=== PATIENT | male | born 1955 | race Caucasian/White ===

== ENCOUNTER 2022-05-20 15:41 | Inpatient (IN) | payer MEDICARE ==
[2022-05-20 16:35] LABS: #Basophils 0.1 10x3/uL (0.0-0.2); #Eosinphils 0.2 10x3/uL (0.0-0.5); #Monocytes 0.9 10x3/uL (0.0-1.1); #Neutrophils 4.9 10x3/uL (1.5-8.4); %Basophils 0.9 % (0.0-2.0); %Eosinophils 2.8 % (0.0-6.0); %Lymphocytes 25.2 % (18.0-47.0); %Monocytes 10.7 % (0.0-10.0); %Neutrophils 59.9 % (40.0-75.0); Hemoglobin 16.4 g/dL (13.5-17.5); Mean Corpuscular HGB CONC 32.8 g/dL (32.0-36.0); Mean Corpuscular Hemoglobin 28.5 pg (27.0-33.0); Mean Platelet Volume 10.1 fl (7.4-10.4); Platelet Count 240 10x3/uL (150-450); RBC Distribution Width 14.6 % (11.5-14.5); Red Blood Cell (RBC) Count 5.75 10x6/uL (4.32-5.72); White Blood Cell (WBC) Count 8.2 10x3/uL (3.5-10.5)
[2022-05-20 17:07] LABS: ALT (SGPT) 21 U/L (8-55); AST (SGOT) 30 U/L (5-34); Alkaline Phosphatase 60 U/L (40-110); Anion Gap 16 mmol/L (10-20); BUN (Urea Nitrogen) 16 mg/dL (8.4-25.7); Bilirubin, Total 0.4 mg/dL (0.2-1.2); Calc. Creatinine Clearance 0 mL/min (70-130); Carbon Dioxide 21 mmol/L (23-31); Chloride 106 mmol/L (98-107); Estimated GFR 98; Globulin 3.8 g/dL (2.4-3.5); Glucose 96 mg/dL (80-115); Potassium 4.5 mmol/L (3.5-5.1); Protein, Total 7.8 g/dL (5.8-8.1); Sodium 138 mmol/L (136-145)
[2022-05-20] MEDS ORDERED: Furosemide 40 MG/4 ML VIAL ONE (17:28)
[2022-05-20 17:51] LABS: Bilirubin Neg (Negative); Blood, Urine 10 (Negative); Clarity Clear (Clear); Glucose, Urine (Dipstick) Normal (Negative); Ketone, Urine Negative (Negative); Leukocyte Negative (Negative); Nitrite Negative (Negative); Protein, Urine (Dipstick) Negative (Neg-Trace); Specific Gravity, Urine 1.015 (1.005-1.030)
[2022-05-20 17:59] LABS: Bacteria/HPF Rare-Few HPF (None Seen); RBC/HPF 0-3 HPF (0-3); Squamous Epithelial 0-3 HPF (0-3)
[2022-05-20] MEDS ORDERED: Senokot S 8.6-50 MG TAB PO PRN (18:24)
[2022-05-20] MEDS ORDERED: Ondansetron PF 4 MG/2 ML Vial IVP PRN (18:24)
[2022-05-20] MEDS ORDERED: Guaifenesin DM 100-10/5 ML UDCUP PO PRN (18:24)
[2022-05-20] MEDS ORDERED: Dextrose 5% in Water 1,000 ML IV PRN (18:47)
[2022-05-20] MEDS ORDERED: Dextrose 50% Abboject 50 ML SYRINGE SLOW IVP PRN (18:47)
[2022-05-20] MEDS ORDERED: HumaLOG 300 UNITS/3 ML VIAL SC PRN (18:47)
[2022-05-20 19:36] LABS: Troponin I Less than 0.010 ng/mL (< 0.028)
[2022-05-20] MEDS: HYDROcodone/Acetaminophen 5/325 mg Tablet PO PRN (22:10)
[2022-05-20] MEDS ORDERED: Tamsulosin HCl 0.4 MG CAP PO SCH (22:15)
[2022-05-20] MEDS ORDERED: Diltiazem 125 MG in Sodium Chloride 0.9% 100 ML IVPB SCH (23:59)
[2022-05-21] MEDS: HYDROcodone/Acetaminophen 5/325 mg Tablet PO PRN ×2 (03:55→20:18)
[2022-05-21 04:51] LABS: #Eosinphils 0.3 10x3/uL (0.0-0.5); #Monocytes 0.7 10x3/uL (0.0-1.1); #Neutrophils 3.4 10x3/uL (1.5-8.4); %Basophils 0.6 % (0.0-2.0); %Lymphocytes 36.6 % (18.0-47.0); %Monocytes 9.7 % (0.0-10.0); %Neutrophils 48.5 % (40.0-75.0); Hemoglobin 15.8 g/dL (13.5-17.5); Mean Corpuscular HGB CONC 32.7 g/dL (32.0-36.0); Mean Corpuscular Hemoglobin 28.1 pg (27.0-33.0); Mean Corpuscular Volume 85.9 fl (81.2-95.1); Mean Platelet Volume 9.8 fl (7.4-10.4); Platelet Count 215 10x3/uL (150-450); RBC Distribution Width 14.6 % (11.5-14.5); Red Blood Cell (RBC) Count 5.62 10x6/uL (4.32-5.72); White Blood Cell (WBC) Count 6.9 10x3/uL (3.5-10.5)
[2022-05-21 05:07] LABS: ALT (SGPT) 17 U/L (8-55); AST (SGOT) 19 U/L (5-34); Albumin 3.8 g/dL (3.4-4.8); Alkaline Phosphatase 53 U/L (40-110); Anion Gap 14 mmol/L (10-20); BUN (Urea Nitrogen) 15 mg/dL (8.4-25.7); Bilirubin, Total 0.5 mg/dL (0.2-1.2); Calc. Creatinine Clearance 203 mL/min (70-130); Calcium 8.9 mg/dL (7.8-10.44); Carbon Dioxide 25 mmol/L (23-31); Chloride 102 mmol/L (98-107); Estimated GFR 98; Globulin 3.4 g/dL (2.4-3.5); Glucose 98 mg/dL (80-115); Magnesium 1.9 mg/dL (1.6-2.6); Potassium 3.5 mmol/L (3.5-5.1); Protein, Total 7.2 g/dL (5.8-8.1); Sodium 137 mmol/L (136-145)
[2022-05-21] MEDS: Furosemide 100 MG/10 ML VIAL SLOW IVP SCH ×2 (06:39→15:28)
[2022-05-21] MEDS ORDERED: Carvedilol 6.25 MG TAB PO SCH (08:00)
[2022-05-21] MEDS: Potassium Chloride 20 MEQ TAB PO SCH ×2 (08:44→16:46)
[2022-05-21] MEDS ORDERED: Sodium Chloride 0.9% 500 ML IV SCH (09:30)
[2022-05-21 12:58] LABS: Hemoglobin A1c 5.5 % (4.0-6.0)
[2022-05-21] MEDS ORDERED: Furosemide 40 MG/4 ML VIAL SLOW IVP SCH (15:30)
[2022-05-21] MEDS: Acetaminophen 325 MG TAB PO PRN (16:46)
[2022-05-21] MEDS: Carvedilol 3.125 MG TAB PO SCH (16:46)
[2022-05-21] MEDS: Apixaban 5 MG TAB PO SCH (20:17)
[2022-05-21] MEDS: Tamsulosin HCl 0.4 MG CAP PO SCH (20:18)
[2022-05-21] MEDS: Calamine/Zinc Oxide 177 ML LOTION TP SCH (21:11)
[2022-05-22] MEDS: HYDROcodone/Acetaminophen 5/325 mg Tablet PO PRN ×3 (02:48→21:56)
[2022-05-22 05:52] LABS: #Eosinphils 0.4 10x3/uL (0.0-0.5); #Monocytes 0.8 10x3/uL (0.0-1.1); #Neutrophils 4.3 10x3/uL (1.5-8.4); %Basophils 0.5 % (0.0-2.0); %Eosinophils 4.8 % (0.0-6.0); %Lymphocytes 30.3 % (18.0-47.0); %Monocytes 9.8 % (0.0-10.0); %Neutrophils 54.1 % (40.0-75.0); Hemoglobin 14.7 g/dL (13.5-17.5); Mean Corpuscular HGB CONC 32.2 g/dL (32.0-36.0); Mean Corpuscular Hemoglobin 28.3 pg (27.0-33.0); Mean Corpuscular Volume 87.7 fl (81.2-95.1); Mean Platelet Volume 9.5 fl (7.4-10.4); Platelet Count 206 10x3/uL (150-450); RBC Distribution Width 14.6 % (11.5-14.5); White Blood Cell (WBC) Count 7.9 10x3/uL (3.5-10.5)
[2022-05-22] MEDS: Furosemide 40 MG/4 ML VIAL SLOW IVP SCH ×2 (05:52→14:23)
[2022-05-22 06:18] LABS: Anion Gap 15 mmol/L (10-20); BUN (Urea Nitrogen) 19 mg/dL (8.4-25.7); Calc. Creatinine Clearance 200 mL/min (70-130); Calcium 8.9 mg/dL (7.8-10.44); Carbon Dioxide 25 mmol/L (23-31); Chloride 101 mmol/L (98-107); Estimated GFR 98; Glucose 100 mg/dL (80-115); Potassium 3.7 mmol/L (3.5-5.1); Sodium 137 mmol/L (136-145)
[2022-05-22] MEDS ORDERED: Digoxin 0.125 MG TAB PO SCH (09:00)
[2022-05-22 09:07] LABS: Free T4 (Free Thyroxine) 0.85 ng/dL (0.70-1.48)
[2022-05-22] MEDS: Apixaban 5 MG TAB PO SCH ×2 (09:22→21:53)
[2022-05-22] MEDS: Potassium Chloride 20 MEQ TAB PO SCH ×2 (09:22→17:16)
[2022-05-22] MEDS: Carvedilol 3.125 MG TAB PO SCH ×2 (09:23→17:16)
[2022-05-22] MEDS: Dronedarone HCl 400 MG TAB PO SCH ×2 (09:23→17:16)
[2022-05-22] MEDS: Aspirin 81 mg Enteric Coated Tablet PO SCH (09:25)
[2022-05-22] MEDS: Calamine/Zinc Oxide 177 ML LOTION TP SCH ×2 (09:26→21:53)
[2022-05-22] MEDS: Acetaminophen 325 MG TAB PO PRN (13:12)
[2022-05-22] MEDS: Tamsulosin HCl 0.4 MG CAP PO SCH (21:52)
[2022-05-23 05:23] LABS: #Eosinphils 0.3 10x3/uL (0.0-0.5); #Monocytes 0.8 10x3/uL (0.0-1.1); #Neutrophils 3.6 10x3/uL (1.5-8.4); %Basophils 0.6 % (0.0-2.0); %Eosinophils 3.7 % (0.0-6.0); %Lymphocytes 31.2 % (18.0-47.0); %Monocytes 11.1 % (0.0-10.0); Hemoglobin 15.4 g/dL (13.5-17.5); Mean Corpuscular HGB CONC 32.6 g/dL (32.0-36.0); Mean Corpuscular Hemoglobin 28.8 pg (27.0-33.0); Mean Corpuscular Volume 88.4 fl (81.2-95.1); Mean Platelet Volume 9.5 fl (7.4-10.4); Platelet Count 198 10x3/uL (150-450); RBC Distribution Width 14.4 % (11.5-14.5); Red Blood Cell (RBC) Count 5.35 10x6/uL (4.32-5.72); White Blood Cell (WBC) Count 6.8 10x3/uL (3.5-10.5)
[2022-05-23 05:46] LABS: Anion Gap 12 mmol/L (10-20); BUN (Urea Nitrogen) 17 mg/dL (8.4-25.7); Calc. Creatinine Clearance 195 mL/min (70-130); Carbon Dioxide 29 mmol/L (23-31); Chloride 100 mmol/L (98-107); Estimated GFR 97; Glucose 102 mg/dL (80-115); Sodium 137 mmol/L (136-145)
[2022-05-23] MEDS: HYDROcodone/Acetaminophen 5/325 mg Tablet PO PRN (06:00)
[2022-05-23] MEDS: Furosemide 40 MG/4 ML VIAL SLOW IVP SCH ×2 (06:01→14:04)
[2022-05-23 06:11] VITALS: BMI 42.3
[2022-05-23] MEDS: Carvedilol 3.125 MG TAB PO SCH ×2 (08:49→16:44)
[2022-05-23] MEDS: Dronedarone HCl 400 MG TAB PO SCH ×2 (08:50→16:45)
[2022-05-23] MEDS: Apixaban 5 MG TAB PO SCH ×2 (08:50→21:10)
[2022-05-23] MEDS: Calamine/Zinc Oxide 177 ML LOTION TP SCH ×2 (08:50→21:13)
[2022-05-23] MEDS: Aspirin 81 mg Enteric Coated Tablet PO SCH (08:50)
[2022-05-23] MEDS: Potassium Chloride 20 MEQ TAB PO SCH ×2 (08:50→16:45)
[2022-05-23] MEDS: Tamsulosin HCl 0.4 MG CAP PO SCH (21:10)
[2022-05-23] MEDS: Acetaminophen 325 MG TAB PO PRN (21:10)
[2022-05-23] MEDS ORDERED: Zolpidem Tartrate 5 MG TAB PO SCH (21:30)
[2022-05-24] MEDS: HYDROcodone/Acetaminophen 5/325 mg Tablet PO PRN ×2 (03:35→08:32)
[2022-05-24] MEDS: Furosemide 40 MG/4 ML VIAL SLOW IVP SCH ×2 (06:36→16:35)
[2022-05-24] MEDS: Carvedilol 3.125 MG TAB PO SCH (08:32)
[2022-05-24] MEDS: Apixaban 5 MG TAB PO SCH ×2 (08:32→21:32)
[2022-05-24] MEDS: Aspirin 81 mg Enteric Coated Tablet PO SCH (08:32)
[2022-05-24] MEDS: Dronedarone HCl 400 MG TAB PO SCH ×2 (08:32→16:35)
[2022-05-24] MEDS: Potassium Chloride 20 MEQ TAB PO SCH ×2 (08:33→16:35)
[2022-05-24] MEDS: Calamine/Zinc Oxide 177 ML LOTION TP SCH ×2 (08:33→21:33)
[2022-05-24 09:55] LABS: Anion Gap 15 mmol/L (10-20); BUN (Urea Nitrogen) 19 mg/dL (8.4-25.7); Calc. Creatinine Clearance 171 mL/min (70-130); Calcium 9.2 mg/dL (7.8-10.44); Carbon Dioxide 27 mmol/L (23-31); Chloride 96 mmol/L (98-107); Estimated GFR 93; Glucose 147 mg/dL (80-115); Potassium 4.3 mmol/L (3.5-5.1); Sodium 134 mmol/L (136-145)
[2022-05-24 10:11] LABS: #Basophils 0.1 10x3/uL (0.0-0.2); #Eosinphils 0.2 10x3/uL (0.0-0.5); #Monocytes 0.6 10x3/uL (0.0-1.1); #Neutrophils 4.2 10x3/uL (1.5-8.4); %Basophils 0.7 % (0.0-2.0); %Eosinophils 3.1 % (0.0-6.0); %Lymphocytes 33.7 % (18.0-47.0); %Monocytes 7.7 % (0.0-10.0); %Neutrophils 54.1 % (40.0-75.0); Hemoglobin 16.4 g/dL (13.5-17.5); Mean Corpuscular HGB CONC 32.4 g/dL (32.0-36.0); Mean Corpuscular Hemoglobin 28.2 pg (27.0-33.0); Mean Corpuscular Volume 87.1 fl (81.2-95.1); Platelet Count 234 10x3/uL (150-450); RBC Distribution Width 14.3 % (11.5-14.5); Red Blood Cell (RBC) Count 5.81 10x6/uL (4.32-5.72); White Blood Cell (WBC) Count 7.7 10x3/uL (3.5-10.5)
[2022-05-24 10:54] LABS: Magnesium 2.1 mg/dL (1.6-2.6)
[2022-05-24] MEDS: Carvedilol 12.5 MG TAB PO SCH (16:35)
[2022-05-24] MEDS: Zolpidem Tartrate 5 MG TAB PO SCH (21:32)
[2022-05-24] MEDS: Tamsulosin HCl 0.4 MG CAP PO SCH (21:33)
[2022-05-25 05:40] LABS: Anion Gap 12 mmol/L (10-20); BUN (Urea Nitrogen) 18 mg/dL (8.4-25.7); Calc. Creatinine Clearance 199 mL/min (70-130); Carbon Dioxide 27 mmol/L (23-31); Chloride 99 mmol/L (98-107); Estimated GFR 98; Glucose 102 mg/dL (80-115); Potassium 4.2 mmol/L (3.5-5.1); Sodium 134 mmol/L (136-145)
[2022-05-25] MEDS: Furosemide 40 MG/4 ML VIAL SLOW IVP SCH ×2 (06:21→14:10)
[2022-05-25] MEDS: HYDROcodone/Acetaminophen 5/325 mg Tablet PO PRN (08:22)
[2022-05-25] MEDS: Aspirin 81 mg Enteric Coated Tablet PO SCH (08:22)
[2022-05-25] MEDS: Apixaban 5 MG TAB PO SCH ×2 (08:22→21:32)
[2022-05-25] MEDS: Dronedarone HCl 400 MG TAB PO SCH ×2 (08:22→18:01)
[2022-05-25] MEDS: Carvedilol 12.5 MG TAB PO SCH ×2 (08:22→18:01)
[2022-05-25] MEDS: Potassium Chloride 20 MEQ TAB PO SCH ×2 (08:22→18:01)
[2022-05-25] MEDS: Calamine/Zinc Oxide 177 ML LOTION TP SCH ×2 (08:23→21:47)
[2022-05-25 16:45] LABS: Magnesium 2.3 mg/dL (1.6-2.6)
[2022-05-25] MEDS: Tamsulosin HCl 0.4 MG CAP PO SCH (21:31)
[2022-05-25] MEDS: Zolpidem Tartrate 5 MG TAB PO SCH (21:32)
[2022-05-26] MEDS: Acetaminophen 325 MG TAB PO PRN (03:50)
[2022-05-26 05:12] LABS: ALT (SGPT) 20 U/L (8-55); AST (SGOT) 23 U/L (5-34); Albumin 3.9 g/dL (3.4-4.8); Alkaline Phosphatase 55 U/L (40-110); Anion Gap 15 mmol/L (10-20); BUN (Urea Nitrogen) 21 mg/dL (8.4-25.7); Bilirubin, Total 0.7 mg/dL (0.2-1.2); Calc. Creatinine Clearance 187 mL/min (70-130); Calcium 9.3 mg/dL (7.8-10.44); Carbon Dioxide 25 mmol/L (23-31); Chloride 99 mmol/L (98-107); Estimated GFR 96; Globulin 3.5 g/dL (2.4-3.5); Glucose 101 mg/dL (80-115); Potassium 4.3 mmol/L (3.5-5.1); Protein, Total 7.4 g/dL (5.8-8.1); Sodium 135 mmol/L (136-145)
[2022-05-26 05:26] LABS: #Basophils 0.1 10x3/uL (0.0-0.2); #Eosinphils 0.2 10x3/uL (0.0-0.5); #Monocytes 0.9 10x3/uL (0.0-1.1); #Neutrophils 5.1 10x3/uL (1.5-8.4); %Basophils 0.7 % (0.0-2.0); %Eosinophils 2.6 % (0.0-6.0); %Lymphocytes 28.9 % (18.0-47.0); %Monocytes 9.7 % (0.0-10.0); %Neutrophils 57.7 % (40.0-75.0); Mean Corpuscular Hemoglobin 28.5 pg (27.0-33.0); Mean Corpuscular Volume 86.5 fl (81.2-95.1); Mean Platelet Volume 9.4 fl (7.4-10.4); Platelet Count 235 10x3/uL (150-450); RBC Distribution Width 14.4 % (11.5-14.5); Red Blood Cell (RBC) Count 5.61 10x6/uL (4.32-5.72); White Blood Cell (WBC) Count 8.9 10x3/uL (3.5-10.5)
[2022-05-26] MEDS: Furosemide 40 MG/4 ML VIAL SLOW IVP SCH (06:10)
[2022-05-26 07:41] VITALS: TEMP 97.1
[2022-05-26] MEDS: HYDROcodone/Acetaminophen 5/325 mg Tablet PO PRN (08:43)
[2022-05-26] MEDS: Potassium Chloride 20 MEQ TAB PO SCH (08:44)
[2022-05-26] MEDS: Calamine/Zinc Oxide 177 ML LOTION TP SCH (08:44)
[2022-05-26] MEDS: Carvedilol 12.5 MG TAB PO SCH (08:44)
[2022-05-26] MEDS: Aspirin 81 mg Enteric Coated Tablet PO SCH (08:44)
[2022-05-26] MEDS: Apixaban 5 MG TAB PO SCH (08:44)
[2022-05-26] MEDS: Dronedarone HCl 400 MG TAB PO SCH (08:44)
[2022-05-26 12:12] VITALS: BP 98/53
[2022-05-26] MEDS ORDERED: Furosemide 40 MG TAB PO SCH (14:00)
== END 2022-05-26 18:35 | disposition home or self-care (01) | DRG 291 ==
LOC: CSHERS 15:41 → CSHTELE 21:48
PROVIDERS: ADMIT Hospitalist; ATTEND Internal Medicine
DX: I11.0 Hypertensive heart disease with heart failure (principal); I50.33 Acute on chronic diastolic (congestive) heart failure; Z68.41 Body mass index [BMI] 40.0-44.9, adult; I48.0 Paroxysmal atrial fibrillation; Z20.822 Contact with and (suspected) exposure to COVID-19; E66.01 Morbid (severe) obesity due to excess calories; E11.9 Type 2 diabetes mellitus without complications; N40.0 Benign prostatic hyperplasia without lower urinary tract symptoms; Z87.891 Personal history of nicotine dependence; Z80.9 Family history of malignant neoplasm, unspecified; G89.29 Other chronic pain; M54.9 Dorsalgia, unspecified; Z91.14 Patient's other noncompliance with medication regimen
CPT/HCPCS: 36415; 36416; 71045; 80048; 80053; 81003; 81015; 83036; 83735; 83880; 84439; 84443; 84481; 84484; 85025; 93005; 93010; 93306; 94760; 96372; 96374; 96375; J1650; J1940; J2405; J7030; U0003; U0005